=== PATIENT | female | born 1960 | race African-American/Black ===

== ENCOUNTER 2019-06-07 13:40 | Outpatient (CLI) | payer BC ==
--- NOTE | 2019-06-07 13:56 | RAD ---
Exam: XR Hip Rt 2-3 View HISTORY: Right hip pain for 3 to 4 months. Patient denies injury. COMPARISON: None FINDINGS: No acute fracture, dislocation, or other acute osseous abnormality is identified. IMPRESSION: No acute osseous abnormality is identified. If patient's symptoms persist, MRI right hip may be helpf ul for further evaluation.
== END 2019-06-07 13:41 | disposition home or self-care (01) ==
LOC: TBSIIMAG 13:40
PROVIDERS: ATTEND Neurological Surgery
DX: M25.551 Pain in right hip (principal)

== ENCOUNTER 2019-10-12 16:59 | Outpatient (CLI) | payer BC ==
--- NOTE | 2019-10-12 17:16 | RAD ---
Right index finger 3 views HISTORY: Injury. Pain. FINDINGS: Joint spaces are preserved. No acute fracture, dislocation, or aggressive osseous erosions. Soft tissue swelling about the proximal interphalangeal joint. IMPRESSION: No acute osseous abnormalities are demonstrated.
== END 2019-10-12 17:00 | disposition home or self-care (01) ==
LOC: SCSRAD 16:59
PROVIDERS: ATTEND Nurse Practitioner Family
DX: R51 Headache (principal)
CPT/HCPCS: 36415; 86304

== ENCOUNTER 2020-02-24 13:57 | Outpatient (CLI) | payer BC ==
--- NOTE | 2020-02-24 14:52 | MMO ---
Left Breast MAMMO Unilat Diag DDI LT+JACKI. CLINICAL HISTORY: Patient is 59 years old and is seen for diagnostic exam. The patient has no family history of breast cancer. The patient has no personal history of cancer. VIEWS: The views performed were: left craniocaudal spot compression with tomosynthesis and left mediolateral with tomosynthesis. FILMS COMPARED: The present examination has been compared to prior imaging studies performed at [facility] on 02/24/2020, at [facility] on 03/09/2018 and 03/03/2019, and at [facility] on 02/21/2020. This study has been interpreted with the assistance of computer-aided detection. MAMMOGRAM FINDINGS: A mass is seen in the left upper outer breast; hamartoma vs resolving hematoma. IMPRESSION: FINDING IN THE LEFT BREAST IS PROBABLY BENIGN. FOLLOW-UP IN 6 MONTHS IS RECOMMENDED. THE RESULTS OF THIS EXAM WERE SENT TO THE PATIENT. ACR BI-RADS Category 3 - Probably benign finding - short interval follow-up suggested. [facility] will notify the patient of the need for additional imaging services. MAMMOGRAPHY NOTE: 1. A negative mammogram report should not delay a biopsy if a dominant of clinically suspicious mass is present. 2. Approximately 10% to 15% of breast cancers are not detected by mammography. 3. Adenosis and dense breasts may obscure an underlying neoplasm. Reported by: ANGELA DURBIN MD Electonically Signed: [id number]
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
== END 2020-02-24 13:58 | disposition home or self-care (01) ==
LOC: BICMAMMO 13:57
PROVIDERS: ATTEND Obstetrics & Gynecology
DX: R92.8 Other abnormal and inconclusive findings on diagnostic imaging of breast (principal)
CPT/HCPCS: G0279

== ENCOUNTER 2021-08-05 15:31 | Inpatient (IN) | payer BC, SELFPAY ==
[2021-08-05 17:07] LABS: Hemoglobin 13.7 g/dL (12.0-16.0); Mean Corpuscular HGB CONC 33.3 g/dL (32.0-36.0); Mean Corpuscular Volume 99.1 fL (78.0-98.0); Mean Platelet Volume 6.4 fL (7.4-10.4); Platelet Count 347 thou/uL (130-400); RBC Distribution Width 12.3 % (11.5-14.5); Red Blood Cell (RBC) Count 4.16 mill/uL (4.20-5.40); White Blood Cell (WBC) Count 6.3 thou/uL (4.8-10.8)
[2021-08-05 17:21] LABS: Eosinophils 4 % (0-10); Lymphocytes 51 % (21-51); MDiff Complete? YES; Monocytes 5 % (0-10); Neutrophil 39 % (42-75); Platelet Morphology Comment Appears Adequate; RBC Morphology Normal; Reactive Lymphocytes 1 % (0-10)
[2021-08-05 17:30] LABS: ALT (SGPT) 8 U/L (8-55); AST (SGOT) 14 U/L (5-34); Albumin 4.1 g/dL (3.5-5.0); Alkaline Phosphatase 49 U/L (40-110); Anion Gap 15 mmol/L (10-20); BUN (Urea Nitrogen) 11 mg/dL (9.8-20.1); Bilirubin, Total 0.4 mg/dL (0.2-1.2); Calc. Creatinine Clearance 0 mL/min (70-130); Calcium 9.5 mg/dL (7.8-10.44); Carbon Dioxide 24 mmol/L (22-29); Chloride 105 mmol/L (98-107); Globulin 3.2 g/dL (2.4-3.5); Glucose 104 mg/dL (70-105); Potassium 3.7 mmol/L (3.5-5.1); Protein, Total 7.3 g/dL (6.0-8.3); Sodium 140 mmol/L (136-145)
[2021-08-05] MEDS ORDERED: Metoclopramide HCl 10 MG/2 ML VIAL ONE (18:23)
[2021-08-05] MEDS ORDERED: diphenhydrAMINE 25 MG CAP ONE (18:24)
[2021-08-05] MEDS ORDERED: diphenhydrAMINE 50 MG/ML VIAL ONE (18:25)
[2021-08-05] MEDS ORDERED: hydrALAZINE 20 MG/ML VIAL SLOW IVP PRN (18:31)
[2021-08-05] MEDS ORDERED: Meclizine HCl 25 MG TAB PO PRN (18:33)
[2021-08-05] MEDS ORDERED: Aspirin Chewable 81 MG TAB ONE (18:37)
[2021-08-05] MEDS ORDERED: Atorvastatin Calcium 40 MG TAB PO SCH (21:00)
[2021-08-05 22:01] LABS: SARS-CoV-2 NAA Rapid Test Not Detected (NotDetected)
[2021-08-05 22:09] VITALS: BMI 25.7
[2021-08-06 05:45] LABS: Hemoglobin 11.9 g/dL (12.0-16.0); Mean Corpuscular Hemoglobin 32.8 pg (27.0-31.0); Mean Corpuscular Volume 99.3 fL (78.0-98.0); Mean Platelet Volume 6.6 fL (7.4-10.4); Platelet Count 304 thou/uL (130-400); RBC Distribution Width 12.3 % (11.5-14.5); Red Blood Cell (RBC) Count 3.62 mill/uL (4.20-5.40)
[2021-08-06 06:05] LABS: Hemoglobin A1c 5.6 % (4.0-6.0)
[2021-08-06 06:06] LABS: Band 1 % (5-11); Lymphocytes 47 % (21-51); MDiff Complete? YES; Monocytes 9 % (0-10); Neutrophil 41 % (42-75); Reactive Lymphocytes 2 % (0-10)
[2021-08-06 06:07] LABS: Anion Gap 10 mmol/L (10-20); BUN (Urea Nitrogen) 12 mg/dL (9.8-20.1); Calc. Creatinine Clearance 65 mL/min (70-130); Carbon Dioxide 26 mmol/L (22-29); Cardiac Risk 3.4 (Less than 4.5); Chloride 109 mmol/L (98-107); Cholesterol 140 mg/dl (< 200 Desired); Glucose 89 mg/dL (70-105); HDL Cholesterol 41 mg/dL (>60 Neg Risk); LDL Cholesterol, Calculated 87 mg/dL; Potassium 3.6 mmol/L (3.5-5.1); Sodium 141 mmol/L (136-145); Triglycerides 59 mg/dL (Less than 150)
[2021-08-06] MEDS ORDERED: Lorazepam 2 MG/ML VIAL SLOW IVP SCH (09:00)
[2021-08-06] MEDS: Atorvastatin Calcium 40 MG TAB PO SCH (10:57)
[2021-08-06] MEDS: Aspirin 325 mg Enteric Coated Tablet PO SCH (10:57)
[2021-08-06] MEDS: Enoxaparin Sodium 40 MG/0.4 ML SYRINGE SC SCH (10:58)
[2021-08-06] MEDS ORDERED: diphenhydrAMINE 50 MG/ML VIAL IVP SCH (12:00)
[2021-08-06] MEDS ORDERED: Prochlorperazine 10 MG/2 ML VIAL IVP SCH (12:00)
[2021-08-06] MEDS: diphenhydrAMINE 50 MG/ML VIAL IVP SCH ×2 (14:41→20:41)
[2021-08-06] MEDS: Prochlorperazine 10 MG/2 ML VIAL IVP SCH ×2 (14:41→20:42)
[2021-08-07] MEDS: diphenhydrAMINE 50 MG/ML VIAL IVP SCH ×2 (02:41→07:41)
[2021-08-07] MEDS: Prochlorperazine 10 MG/2 ML VIAL IVP SCH ×2 (02:41→10:18)
[2021-08-07 06:08] LABS: Hemoglobin 12.4 g/dL (12.0-16.0); Mean Corpuscular HGB CONC 31.5 g/dL (32.0-36.0); Mean Corpuscular Hemoglobin 30.9 pg (27.0-31.0); Mean Corpuscular Volume 98.3 fL (78.0-98.0); Mean Platelet Volume 6.8 fL (7.4-10.4); Platelet Count 317 thou/uL (130-400); RBC Distribution Width 12.3 % (11.5-14.5); Red Blood Cell (RBC) Count 4.01 mill/uL (4.20-5.40); White Blood Cell (WBC) Count 4.7 thou/uL (4.8-10.8)
[2021-08-07 06:35] LABS: Anion Gap 11 mmol/L (10-20); BUN (Urea Nitrogen) 15 mg/dL (9.8-20.1); Calc. Creatinine Clearance 59 mL/min (70-130); Calcium 8.8 mg/dL (7.8-10.44); Carbon Dioxide 24 mmol/L (22-29); Chloride 109 mmol/L (98-107); Glucose 89 mg/dL (70-105); Potassium 4.2 mmol/L (3.5-5.1); Sodium 140 mmol/L (136-145)
[2021-08-07 06:47] LABS: Lymphocytes 56 % (21-51); MDiff Complete? YES; Monocytes 3 % (0-10); Neutrophil 41 % (42-75)
[2021-08-07] MEDS: Enoxaparin Sodium 40 MG/0.4 ML SYRINGE SC SCH (07:40)
[2021-08-07] MEDS: Atorvastatin Calcium 40 MG TAB PO SCH (07:41)
[2021-08-07 08:25] VITALS: BP 112/70; TEMP 98
[2021-08-07] MEDS: Aspirin 325 mg Enteric Coated Tablet PO SCH (10:17)
== END 2021-08-07 10:24 | disposition home or self-care (01) | DRG 103 ==
LOC: ERS 15:31 → ERHOLD 18:34 → 2SW 21:35 → OBSVTOIN 08-07 09:49
PROVIDERS: ADMIT Internal Medicine; ATTEND Internal Medicine
DX: G43.109 Migraine with aura, not intractable, without status migrainosus (principal); Z20.822 Contact with and (suspected) exposure to COVID-19; E11.9 Type 2 diabetes mellitus without complications; E78.5 Hyperlipidemia, unspecified; H81.10 Benign paroxysmal vertigo, unspecified ear; Z88.5 Allergy status to narcotic agent; Z88.2 Allergy status to sulfonamides; Z79.899 Other long term (current) drug therapy; Z79.82 Long term (current) use of aspirin; Z90.710 Acquired absence of both cervix and uterus; Z98.890 Other specified postprocedural states
CPT/HCPCS: 36415; 70450; 70551; 80048; 80053; 80061; 83036; 85025; 93005; 93880; 96372; 96374; 96375; 96376; G0378; J0780; J1200; J1650; J2060; J2765; U0002

== ENCOUNTER 2021-10-07 15:48 | Outpatient (CLI) | payer BC | END 2021-10-07 15:49 | disposition home or self-care (01) | LOC: BICMAMMO 15:48 | PROVIDERS: ATTEND Family Medicine | DX: Z12.31 Encounter for screening mammogram for malignant neoplasm of breast (principal); Z13.820 Encounter for screening for osteoporosis; M81.0 Age-related osteoporosis without current pathological fracture; M85.88 Other specified disorders of bone density and structure, other site; Z80.3 Family history of malignant neoplasm of breast; Z87.39 Personal history of other diseases of the musculoskeletal system and connective tissue | CPT/HCPCS: 77063; 77067; 77080 ==